=== PATIENT | male | born 1970 | race African-American/Black ===

== ENCOUNTER 2017-03-10 17:18 | Emergency (ER) | payer MEDICAID, OTHER ==
[~2017-03-10] VITALS: Ht 195.6 cm; Wt 113.4 kg
[2017-03-10] MEDS ORDERED: GASTROGRAFIN 30 ML SOL ONE (20:07)
[2017-03-10] MEDS ORDERED: cloNIDine 0.2 mg/24hr 7DAY PATCH TD ONE (20:15)
[2017-03-10] MEDS ORDERED: IOHEXOL 300 MG/ML 100ML BOTTLE IJ ONE (20:36)
[2017-03-10] MEDS ORDERED: cloNIDine HCL 0.1 MG TAB ONE (21:03)
[2017-03-10] MEDS ORDERED: cloNIDine HCL 0.1 MG TAB PO ONE (21:30)
[2017-03-10] MEDS ORDERED: METOPROLOL TARTRATE 50 MG TAB PO ONE (22:45)
[2017-03-11 00:23] VITALS: BP 135/103
== END 2017-03-11 01:40 | disposition home or self-care (01) ==
LOC: ER 17:41
DX: R10.9 Unspecified abdominal pain (principal); I10 Essential (primary) hypertension; M25.552 Pain in left hip; Z76.0 Encounter for issue of repeat prescription
CPT/HCPCS: 74176; 99284; Q9963

== ENCOUNTER 2017-03-19 16:48 | Emergency (ER) | payer MEDICAID ==
[~2017-03-19] VITALS: Ht 195.6 cm; Wt 113.4 kg
[2017-03-19] MEDS ORDERED: cloNIDine HCL 0.1 MG TAB ONE (16:53)
[2017-03-19 18:22] LABS: Basophils # (auto) 0 uL; Basophils % (auto) 0.4 % (0.0-2.0); Eosinophils # (auto) 0.1 uL; Hematocrit 48.6 % (41.0-53.0); Hemoglobin 16.6 g/dL (13.5-17.5); Lymphocytes # (auto) 1.7 uL; Lymphocytes % (auto) 15.4 % (10.0-50.0); Mean Corpuscular Hemoglobin 29.5 pg (28.0-32.0); Mean Corpuscular Hgb Conc. 34.2 g/dL (32.0-36.0); Mean Corpuscular Volume 86.1 fL (80.0-100.0); Mean Platelet Volume 7.1 fL (6.9-10.8); Monocytes # (auto) 0.6 uL; Neutrophils # (auto) 8.6 uL; Neutrophils % (auto) 78.2 % (37.0-80.0); Nucleated Red Blood Cells % 0.1 %; Platelet Count (auto) 353 10^3/uL (140-450); Red Cell Distribution Width 14.3 % (11.8-14.3)
[2017-03-19] MEDS ORDERED: cloNIDine HCL 0.1 MG TAB PO ONE (18:50)
[2017-03-19 19:01] LABS: Alkaline Phosphatase 107 U/L (45-117); Anion Gap 10 (5-15); Aspartate Aminotransferase 16 U/L (15-37); BUN/Creatinine Ratio 12.8; Bilirubin, Total 0.3 mg/dL (0.2-1.0); Blood Urea Nitrogen 16 mg/dL (7-18); Calcium 8.5 mg/dL (8.5-10.1); Carbon Dioxide 25 mmol/L (21-32); Chloride 106 mmol/L (98-107); GFR African American 80 mL/min; GFR Non-African American 66 mL/min; Glucose 129 mg/dL (74-106); Potassium 3.7 mmol/L (3.5-5.1); Sodium 141 mmol/L (136-145); Total Protein 7.4 g/dL (6.4-8.2)
[2017-03-20] MEDS ORDERED: cloNIDine HCL 0.1 MG TAB PO ONE (00:30)
[2017-03-20] MEDS ORDERED: HYDROcodone-ACET 10/325MG TAB PO ONE (00:30)
[2017-03-20] MEDS ORDERED: hydrALAZINE HCL 20 MG/ML VL IV ONE (01:45)
[2017-03-20] MEDS ORDERED: HYDROmorphone HCL 2 MG/ML VL IV ONE (02:00)
[2017-03-20] MEDS ORDERED: ONDANSETRON HCL 4 MG/2 ML VIAL IV ONE (02:00)
[2017-03-20 05:14] VITALS: BP 121/84
== END 2017-03-20 06:39 | disposition home or self-care (01) ==
LOC: ER 16:48
DX: M54.42 Lumbago with sciatica, left side (principal); I10 Essential (primary) hypertension
CPT/HCPCS: 36415; 72131; 80053; 84484; 85025; 93005; 96374; 96375; 99285; J0360; J1170; J2405

== ENCOUNTER → 2017-04-01 00:09 | Emergency (ER) | payer MEDICAID ==
[~2017-04-01] VITALS: Ht 195.6 cm; Wt 113.4 kg
[~2017-04-01 00:09] MED LIST: DEXAMETHASONE SOD PHOS 4 MG/1ML SDV INJ IV ONE; METOCLOPRAMIDE HCL 5MG/ml INJ 2ml VIAL IV ONE; NALBUPHINE HCL 10 MG/1ml INJECTION IV ONE; SODIUM CHLORIDE 0.9% 1,000 ML IV ONE
[2017-04-01 12:09] VITALS: BP 161/93
== END | disposition home or self-care (01) ==
LOC: ER 00:09
DX: M54.17 Radiculopathy, lumbosacral region (principal); I10 Essential (primary) hypertension; E66.9 Obesity, unspecified; Z68.29 Body mass index [BMI] 29.0-29.9, adult
CPT/HCPCS: 96361; 96374; 96375; 99285; J1100; J2300; J2765; J7030

== ENCOUNTER 2017-04-26 19:48 | Emergency (ER) | payer MEDICAID ==
[~2017-04-26] VITALS: Ht 193 cm; Wt 117.9 kg
[2017-04-26 20:19] VITALS: BP 147/112
[2017-04-26] MEDS ORDERED: ONDANSETRON HCL 4 MG/2 ML VIAL IM ONE (22:15)
[2017-04-26] MEDS ORDERED: HYDROmorphone HCL 2 MG/ML VL IM ONE (22:15)
== END 2017-04-26 22:38 | disposition home or self-care (01) ==
LOC: ER 19:48
DX: M54.16 Radiculopathy, lumbar region (principal); G89.29 Other chronic pain; M54.5 Low back pain; I10 Essential (primary) hypertension
CPT/HCPCS: 96372; 99284; J1170; J2405

== ENCOUNTER 2017-04-28 17:01 | Emergency (ER) | payer MEDICAID ==
[~2017-04-28] VITALS: Ht 195.6 cm; Wt 90.7 kg
[2017-04-28 17:15] VITALS: BP 145/108
[2017-04-28 19:08] LABS: Basophils # (auto) 0.1 uL; Basophils % (auto) 0.8 % (0.0-2.0); Eosinophils # (auto) 0.2 uL; Eosinophils % (auto) 1.5 % (0.0-7.0); Hematocrit 48.6 % (41.0-53.0); Hemoglobin 16.6 g/dL (13.5-17.5); Lymphocytes # (auto) 2.2 uL; Lymphocytes % (auto) 20.6 % (10.0-50.0); Mean Corpuscular Hemoglobin 29.3 pg (28.0-32.0); Mean Corpuscular Hgb Conc. 34.2 g/dL (32.0-36.0); Mean Corpuscular Volume 85.7 fL (80.0-100.0); Monocytes # (auto) 0.7 uL; Monocytes % (auto) 6.8 % (0.0-12.0); Neutrophils # (auto) 7.6 uL; Neutrophils % (auto) 70.3 % (37.0-80.0); Nucleated Red Blood Cells % 0.7 %; Platelet Count (auto) 366 10^3/uL (140-450); Red Blood Cells 5.67 10^6/uL (4.5-5.90); Red Cell Distribution Width 14.8 % (11.8-14.3); White Blood Cell 10.8 10^3/uL (4.4-10.8)
[2017-04-28 19:09] LABS: Urine Bacteria NONE SEEN /hpf (None Seen); Urine Blood Negative /uL (Negative); Urine Specific Gravity 1.027 (1.001-1.035); Urine WBC 3 /hpf (0 - 3)
[2017-04-28 19:27] LABS: Albumin 3.7 g/dL (3.4-5.0); BUN/Creatinine Ratio 15.5; Bilirubin, Total 0.3 mg/dL (0.2-1.0); Calcium 8.3 mg/dL (8.5-10.1); Potassium 3.9 mmol/L (3.5-5.1); Total Protein 7.3 g/dL (6.4-8.2)
== END 2017-04-29 03:12 | disposition left against medical advice (07) ==
LOC: ER 17:03
DX: R10.9 Unspecified abdominal pain (principal); Z53.21 Procedure and treatment not carried out due to patient leaving prior to being seen by health care provider
CPT/HCPCS: 36415; 80053; 81001; 85025

== ENCOUNTER 2017-04-29 18:58 | Emergency (ER) | payer MEDICAID ==
[~2017-04-29] VITALS: Ht 195.6 cm; Wt 117.9 kg
[2017-04-29 19:08] VITALS: BP 145/90
[2017-04-29] MEDS ORDERED: CYCLOBENZAPRINE HCL 10 MG TAB PO ONE (21:45)
[2017-04-29] MEDS ORDERED: KETOROLAC TROMETH 60MG/2ML VIAL IM ONE (21:45)
== END 2017-04-29 21:42 | disposition left against medical advice (07) ==
LOC: ER 18:58
DX: M79.604 Pain in right leg (principal); M54.31 Sciatica, right side; I10 Essential (primary) hypertension

== ENCOUNTER 2017-06-11 17:54 | Emergency (ER) | payer MEDICAID ==
[~2017-06-11] VITALS: Ht 195.6 cm; Wt 108.9 kg
[2017-06-11] MEDS ORDERED: cloNIDine HCL 0.1 MG TAB ONE (18:00)
[2017-06-11 18:01] VITALS: BP 209/107
[2017-06-11] MEDS ORDERED: cloNIDine HCL 0.1 MG TAB PO ONE (18:15)
== END 2017-06-11 22:14 | disposition home or self-care (01) ==
LOC: ER 17:54
DX: K04.7 Periapical abscess without sinus (principal); I10 Essential (primary) hypertension; Z76.0 Encounter for issue of repeat prescription